=== PATIENT | female | born 2000 | race Two or more races ===

== ENCOUNTER 2022-01-18 19:04 | Inpatient (IN) | payer MEDICAID, OTHER ==
[~2022-01-18] VITALS: Ht 165.1 cm; Wt 62.0 kg
[~2022-01-18 19:04] MED LIST: ALBUAER3 IN; AZITTAB11 PO
[2022-01-18 19:38] LABS: Basophils # (auto) 0.1 10 ^3/uL (0-0.2); Basophils % (auto) 1.6 % (0.0-2.0); Eosinophils # (auto) 0 10 ^3/uL (0-0.8); Eosinophils % (auto) 0.2 % (0.0-7.0); Hematocrit 42.3 % (36.0-46.0); Hemoglobin 14.8 g/dL (12.2-16.2); Lymphocytes # (auto) 2.2 10 ^3/uL (0.4-5.4); Lymphocytes % (auto) 24.2 % (10.0-50.0); Mean Corpuscular Hemoglobin 30.9 pg (28.0-32.0); Mean Corpuscular Hgb Conc. 34.9 g/dL (32.0-36.0); Mean Corpuscular Volume 88.3 fL (80.0-100.0); Monocytes # (auto) 0.4 10 ^3/uL (0-1.3); Neutrophils # (auto) 6.3 10 ^3/uL (1.6-8.6); Nucleated Red Blood Cells % 0.1 %; Red Blood Cells 4.79 10^6/uL (4.0-5.20); Red Cell Distribution Width 13.6 % (11.8-14.3)
[2022-01-18] MEDS ORDERED: ONDANSETRON HCL 4 MG/2 ML VIAL ONE (19:44)
[2022-01-18] MEDS ORDERED: SODIUM CHLORIDE 0.9% 1,000 ML IV ONE (19:45)
[2022-01-18] MEDS ORDERED: ONDANSETRON HCL 4 MG/2 ML VIAL IV ONE (19:45)
[2022-01-18 19:54] LABS: INR 1.04 (0.9-1.15)
[2022-01-18 19:56] LABS: Calcium 8.9 mg/dL (8.5-10.1); Potassium 3.2 mmol/L (3.5-5.1); Salicylate < 1.7 mg/dL (2.8-20.0)
[2022-01-18 19:58] LABS: BUN/Creatinine Ratio 9.3
[2022-01-18 20:01] LABS: Bilirubin, Total 0.4 mg/dL (0.2-1.0); Total Protein 7.6 g/dL (6.4-8.2)
[2022-01-18 20:30] LABS: Acetaminophen 123.3 ug/mL (10-30)
[2022-01-18] MEDS ORDERED: D5W 5% IV ONE ×2 (20:30→21:30)
[2022-01-18] MEDS ORDERED: ACETYLCYSTEINE IV ONE ×2 (20:30→21:30)
[2022-01-18] MEDS ORDERED: ACETYLCYSTEINE 6GM/30ml (200mg/ml) IV SOLN 30ML IV ONE (20:56)
[2022-01-18 21:20] LABS: Urine Bacteria NONE SEEN /hpf (None Seen); Urine Blood Negative /uL (Negative); Urine Specific Gravity 1.028 (1.001-1.035); Urine WBC <1 /hpf (0 - 5)
[2022-01-18] MEDS ORDERED: ONDANSETRON HCL 4 MG/2 ML VIAL IV PRN (21:30)
[2022-01-18 21:32] LABS: Alcohol, Urine < 3.0 mg/dL (0-10); Amphetamine Screen, Urine NEGATIVE (NEGATIVE); Barbiturate Scree,Urine NEGATIVE (NEGATIVE); Benzodiazephine Screen, Urine NEGATIVE (NEGATIVE); Cannabinoid Screen, Urine NEGATIVE (NEGATIVE); Cocaine Screen, Urine NEGATIVE (NEGATIVE); Opiate Scree,Urine NEGATIVE (NEGATIVE); Phencyclidine Screen, Urine NEGATIVE (NEGATIVE)
[2022-01-18] MEDS: SODIUM CHLORIDE 0.9% 1,000 ML IV SCH (21:43)
[2022-01-18] MEDS: POTASSIUM CHL 20 Meq TABLET PO ONE (22:40)
[2022-01-18] MEDS ORDERED: PROMETHAZINE HCL 25 MG/ML 1ML IV ONE (22:45)
[2022-01-18] MEDS ORDERED: PROMETHAZINE HCL 25 MG/ML 1ML IM ONE (23:00)
[2022-01-18 23:54] VITALS: BP 115/75
[2022-01-19] VITALS (7 sets, daily range): BP systolic 110–125; BP diastolic 64–83
[2022-01-19] MEDS: POTASSIUM CHL 20 Meq TABLET PO ONE (00:46)
[2022-01-19] MEDS ORDERED: D5W 5% IV SCH (01:30)
[2022-01-19] MEDS ORDERED: ACETYLCYSTEINE IV SCH (01:30)
[2022-01-19 06:35] LABS: Basophils # (auto) 0 10 ^3/uL (0-0.2); Basophils % (auto) 0.4 % (0.0-2.0); Eosinophils # (auto) 0.1 10 ^3/uL (0-0.8); Eosinophils % (auto) 0.6 % (0.0-7.0); Hematocrit 39.5 % (36.0-46.0); Hemoglobin 13.7 g/dL (12.2-16.2); Lymphocytes # (auto) 2.5 10 ^3/uL (0.4-5.4); Lymphocytes % (auto) 25.5 % (10.0-50.0); Mean Corpuscular Hemoglobin 31.1 pg (28.0-32.0); Mean Corpuscular Hgb Conc. 34.7 g/dL (32.0-36.0); Mean Corpuscular Volume 89.6 fL (80.0-100.0); Monocytes # (auto) 0.6 10 ^3/uL (0-1.3); Monocytes % (auto) 6.1 % (0.0-12.0); Neutrophils # (auto) 6.6 10 ^3/uL (1.6-8.6); Neutrophils % (auto) 67.4 % (37.0-80.0); Red Blood Cells 4.41 10^6/uL (4.0-5.20); Red Cell Distribution Width 13.6 % (11.8-14.3); White Blood Cell 9.9 10^3/uL (4.4-10.8)
[2022-01-19 06:57] LABS: Potassium 3.3 mmol/L (3.5-5.1)
[2022-01-19 07:08] LABS: Albumin 3.1 g/dL (3.4-5.0); BUN/Creatinine Ratio 6.8; Bilirubin, Total 0.5 mg/dL (0.2-1.0); Calcium 8.4 mg/dL (8.5-10.1); Total Protein 6.2 g/dL (6.4-8.2)
[2022-01-19] MEDS: SODIUM CHLORIDE 0.9% 1,000 ML IV SCH ×2 (09:20→15:00)
[2022-01-19] MEDS ORDERED: POTASSIUM EFFERVESENT TAB 25 MEQ PO ONE (14:45)
[2022-01-20 05:00] VITALS: BP 111/67
[2022-01-20] MEDS: SODIUM CHLORIDE 0.9% 1,000 ML IV SCH (05:48)
[2022-01-20 06:21] LABS: Albumin 3.1 g/dL (3.4-5.0); Bilirubin, Direct < 0.1 mg/dL (0-0.2); Magnesium 2.4 mg/dL (1.6-2.6); Potassium 3.7 mmol/L (3.5-5.1)
[2022-01-20 06:25] LABS: Alanine Aminotransferase 20 U/L (13-56); Alkaline Phosphatase 83 U/L (45-117); Aspartate Aminotransferase 16 U/L (15-37); Bilirubin, Total 0.3 mg/dL (0.2-1.0); Total Protein 6.2 g/dL (6.4-8.2)
[2022-01-20 09:00] VITALS: BP 107/72
[2022-01-20 13:00] VITALS: BP 118/72
[2022-01-20 17:30] VITALS: BP 111/72
[2022-01-20 22:00] VITALS: BP 109/65
[2022-01-21 05:00] VITALS: BP 104/80
[2022-01-21 09:00] VITALS: BP 112/55
[2022-01-21 11:18] VITALS: BP 104/86
[2022-01-21 13:00] VITALS: BP 112/55
== END 2022-01-21 15:57 | DRG 817 ==
LOC: ER 19:06 → OVERFLOW 21:16 → WEST WING 23:01
PROVIDERS: ADMIT Nurse Practitioner; ATTEND Internal Medicine
DX: T39.1X2A Poisoning by 4-Aminophenol derivatives, intentional self-harm, initial encounter (principal); E87.6 Hypokalemia; F41.9 Anxiety disorder, unspecified; Z20.822 Contact with and (suspected) exposure to COVID-19; F32.89 Other specified depressive episodes; Z53.29 Procedure and treatment not carried out because of patient's decision for other reasons; Z88.0 Allergy status to penicillin; Z91.51 Personal history of suicidal behavior; Y92.89 Other specified places as the place of occurrence of the external cause
CPT/HCPCS: 36415; 80053; 80076; 80307; 80320; 80329; 81001; 81025; 83735; 84132; 84439; 84443; 85025; 85610; 93005; 96361; 96365; 96367; 96372; 96375; 99291; G0378; J2405; J7060